=== PATIENT | male | born 1955 | race Caucasian/White ===

== ENCOUNTER 2022-08-21 08:58 | Emergency (ER) | payer BC, SELFPAY ==
[2022-08-21 09:10] VITALS: BP 169/95; PULSE 72; RESP 12; TEMP 37; O2SAT 99
--- NOTE | 2022-08-21 09:26 | ED.EAR ---
HPI - Ear Problem General Chief complaint: Ear Stated complaint: trouble hearing from left ear Time Seen by Provider: 08/21/22 09:15 Source: patient Mode of arrival: ambulatory Limitations: no limitations History of Present Illness HPI Narrative: 66-year-old male presents with complaint of clogged feeling to left ear with decreased hearing. Patient states that he went to his yearly doctor's appointment 3 days ago and was told lots of wax to left ear canal. Was told to use navw-ofz-blskloj Debrox drops. States that Debrox drops made symptoms worse. Patient is leaving to go town, flying on a plane today, and would like ear irrigated prior to leaving. All systems reviewed and negative except as noted above. Related Data Home Medications Medication Instructions Recorded Confirmed multivitamin 1 tablet PO DAILY 08/19/22 08/21/22 tizanidine 4 mg tablet 4 mg PO QHS PRN muscle spasticity 08/19/22 08/21/22 Allergies Allergy/AdvReac Type Severity Reaction Status Date / Time No Known Allergies Allergy Verified 08/21/22 09:01 Review of Systems Review of Systems: CONSTITUTIONAL: Denies fever, chills, or sweats. EYES: Denies visual changes, redness, or discharge. ENT: Denies rhinorrhea, congestion, sore throat, or otalgia. Reports clogged, decreased hearing left ear. CARDIOVASCULAR: Denies chest pain, palpitations, or edema. RESPIRATORY: Denies cough or dyspnea. GASTROINTESTINAL: Denies abdominal pain, nausea, vomiting, or diarrhea. GENITOURINARY: Denies dysuria or hematuria. SKIN: Denies rash or itching. MUSCULOSKELETAL: Denies back pain, joint pain, or myalgia. NEUROLOGIC: Denies headache, numbness, or weakness. PSYCHIATRIC: Denies anxiety or depression. All other systems reviewed are negative, except as documented in HPI. [facility] Past Medical History Medical History BMI 34.0-34.9,adult BMI over 35 Elevated glucose Essential (primary) hypertension Mixed hyperlipidemia Need for vaccination Family History Family History Father Hypertension Cerebrovascular accident Family history of diabetes mellitus in first degree relative Family history of heart disease in male family member before age 55 Sibling Family history of diabetes mellitus in first degree relative Other Family history of arthritis Family history of cardiovascular disease Social History Social History Smoking status: Never smoker Second hand tobacco smoke exposure: No Alcohol intake: current Substance use: never Substance use type: does not use Lack of Transportation: No Lack of Food: Never True Current Housing: I Have Housing Concerned About Future Housing: No Difficulty Paying Gas/Electric Bills: No Difficulty Paying for Meds: No Currently Unemployed: No Education: Bachelor's Degree Difficulty w/ Childcare or Family Care: No Comments At time of signature, agree with nursing past medical, surgical, social and family history. There is no relevant family history pertinent to the presenting complaint. Exam Narrative: GENERAL: This is a well-nourished, well-developed patient, in no apparent distress. HEAD: normocephalic, atraumatic. EYES: PERRL. Sclera clear/white. Vision is grossly intact. EARS: External ears normal, Left ear canal impacted with cerumen. Right ear canal normal. Right TM normal. Left TM normal after irrigated. NOSE: External nose normal NECK: Neck supple, non-tender without lymphadenopathy, masses or thyromegaly. CARDIOVASCULAR: Regular rate and rhythm without murmurs, gallops, or rubs. RESPIRATORY: Clear to auscultation. Breath sounds equal bilaterally. No wheezes, rales, or rhonchi. SKIN: warm, Dry, intact with no suspicious lesions or rash, good texture and turgor. NEURO: awake, alert, and oriented to person, plac
== END 2022-08-21 09:38 | disposition home or self-care (01) ==
PROVIDERS: Emergency Provider Nurse Practitioner Family; PCP Family Medicine
DX: H61.22 Impacted cerumen, left ear (principal); I10 Essential (primary) hypertension; E78.2 Mixed hyperlipidemia
CPT/HCPCS: 69209; 99213; G0463

== ENCOUNTER 2024-08-17 08:54 | Outpatient (CLI) | payer MEDICARE, SELFPAY ==
--- NOTE | ~2024-08-17 | XR_ITS ---
Left Knee Technique: AP, lateral, and sunrise views were obtained. Clinical History: Arthritis Findings: No fracture or dislocation is seen. Osseous alignment is anatomic. Moderate to advanced tri compartmental osteoarthritis present, worst in the patellofemoral compartment.. Probable small joint effusion is seen. Impression: Moderate to advanced tricompartmental osteoarthritis. Probable small joint effusion. Reviewed, dictated and finalized at location . Impression: Moderate to advanced tricompartmental osteoarthritis. Probable small joint effusion.
--- OUTSIDE RECORDS SUMMARY | 2024-08-17 09:05 | XMS_ITS | Clinical Summary ---
Author Organization [facility] Address [address] [place] [address] Care Team Providers Care Sonography Technician Name Role Phone Unavailable Primary Care Provider Unavailabl e Source Comments [facility],non-owned Affiliates and Associated Physician Practices is amultiple site organization consisting of ambulatory clinics and hospital sitesin [place], [place], [place] and [place]. This disclosure is being madepursuant to the Care Everywhere program and may not contain all information available regarding this patient. Last updated 17.[facility] [employer] Social History Tobacco Use Types Packs/Day Years Used Date Smoking Tobacco: Never Assessed Sex and Gender Information Value Date Recorded Sex Assigned at Not on file Legal Sex Male 6:54 AM CDT Gender Identity Not on file Sexual Orientation Not on file Plan of Treatment Health Maintenance Due Date Last Done Comments COLOGUARD (AGES 45-75) - COL ON CA SCREENING 1957 COLON MONITORING 1957 COLONOSCOPY - COLON CA SCREENING 1957 CT COLONOGRAPHY - COLON CA SCREENING 1957 Colorectal Cancer Screening 1957 FIT - COLON CA SCREENING 1957 FLEX SIG - COLON CA SCREENING 1957 LIPID TESTING 1957 HEPATITIS C SCREENING 09/29/1975 DTAP/TDAP/TD VACCINES (1 - Tdap) 1976 PNEUMOCOCCAL VACCINE 50+ (1 of 1 - PCV) 10/04/2007 ZOSTER VACCINE (1 of 2) 10/04/2007 COVID-19 VACCINE ( - 2023-2 5 season) 2023 DEPRESSION SCREENING 04/04/2024 MEDICARE AWV CALENDAR YEAR 2024 INFLUENZA VACCINE (Season Ended) 2024 Respiratory Syncytial Virus (RSV) Vaccine Pt: or over 60 yrs (1 - 1-dose 75+ series) 2032 HEPATITIS B VACCINE Aged Out No longe r eligible based on patient's age to complete this topic HIB VACCINE Aged Out No longer eligi ble based on patient's age to complete this topic HPV VACCINE Aged Out No longer eligi ble based on patient's age to complete this topic MENINGOCOCCAL (Group B) VACC INE SHARED DECISION-MAKING Aged Out No longer eligibl e based on patient's age to complete this topic MENINGOCOCCAL GROUPS A/C/Y/W VACCINE Aged Out No longer eligible b ased on patient's age to complete this topic Insurance
--- OUTSIDE RECORDS SUMMARY | 2024-08-17 09:05 | XMS_ITS | CONTINUITY OF CARE DOCUMENT ---
Author Name shakira rosenberg Address Unknown Organization [facility] Address [address] [place] [address] Phone [phone] Care Team Providers Care Stack Yield Engineer Name Role Phone TAHMINA JACKSON, GREGORY F Unavailable [phone] INSURANCE PROVIDERS Payer name Policy type / Coverage type [place] red republican ID [facility] [id number]
--- OUTSIDE RECORDS SUMMARY | 2024-08-17 09:05 | XMS_ITS | Encounter Summary ---
Author Organization [facility] Address [address] [place] [address] Care Team Providers Care Commercial Loan Administrator Name Role Phone Unavailable Primary Care Provider Unavailabl e Encounter Details Date Type Department Care Team (Late st Contact Info) Description 10/08/2022 Lab Requisition [facility] - DermPath Lab [address] [place] [id number] Rosalio Zamorano MD [address] [place] [address] Social History Tobacco Use Types Packs/Day Years Used Date Smoking Tobacco: Never Assessed Sex and Gender Information Value Date Recorded Sex Assigned at Not on file Legal Sex Male 6:54 AM CDT Gender Identity Not on file Sexual Orientation Not on file documented as of this encounter Plan of Treatment Not on file documented as of this encounter Procedures Procedure Name Priority Date/Time Associated Diagnosis Comments DERMATOPATHOLOGY Routine 10/07/2022 12:0 0 AM CDT documented in this encounter Results * DERMATOPATHOLOGY (10/07/2022 12:00 AM CDT) Case Report Dermatopathology Report Case: [id number] Authorizing Provider: Rosalio Zamorano MD Collected: 10/07/2022 12:00 AM Ordering Location: [facility] Received: 10/08/2022 07:13 AM Pathologist: Donna Matos MD Specimen: Skin, left scalp 9:43 AM CDT DERMATOPATHOLOGY LABORATORY Final Diagnosis Specimen A. SKIN, left scalp: INVERTED FOLLICULAR KERATOSIS (L82.1) PRESENT AT MARGIN 9:43 AM CDT DERMATOPATHOLOGY LABORATORY Clinical History Changing lesion removed Check margins 9:43 AM CDT DERMATOPATHOLOGY LABORATORY Gross Description Specimen A: Received is one formalin filled container labeled with the patient's name and designated left scalp. The specimen consists of a shave biopsy measuring 7x6x4 mm. Jar 0. 9:43 AM T DERMATOPATHOLOGY LABORATORY Microscopic Description Specimen A. SKIN, left scalp: Sections show an endophytic lesion with acanthosis consisting of fairly uniform squamous cells with eosinophilic cytoplasm. Squamous eddies are seen toward the base of the lesion. This lesion is present at the margin of the specimen. 9:43 AM CDT DERMATOPATHOLOGY LABORATORY Disclaimer An external and internal positive and negative controls are appropriate for the histochemical, immunohistochemical and immunofluorescence stain(s) in this case (if any), except where stated explicitly. The performance characteristics of the stain(s) cited in this report were developed and its performance characteristic determined by the Dermatopathology Laboratory at [facility], directed by Dr. Gregory Kelly. These tests need not be, and therefore are not, approved by the [place] Food and Drug Administration. The tests are used for clinical purposes. Billing Codes Specimen Charges Stain Charges 67590 1 9:43 AM CDT DERMATOPATHOLOGY LABORATORY Embedded Images 9:43 AM CDT DERMATOPATHOLOGY LABORATORY Pathology/Cytolog y TISSUE SPECIMEN FROM SKIN / Unknown 10/07/2022 10/08/2022 7:13 AM CDT Rosaliohong Zamorano MD LAB - PATHOLOGY/CYTOLOGY KIMBER WETZEL Final Result DERMATOPATHOLOGY LABORATORY [facility] - Department of Dermatology [address], [address] [phone] documented in this encounter Visit Diagnoses Not on filedocumented in this encounter
== END 2024-08-17 08:55 | disposition home or self-care (01) ==
PROVIDERS: PCP Family Medicine; Visit Provider Family Medicine
DX: M17.12 Unilateral primary osteoarthritis, left knee (principal)
CPT/HCPCS: 73564

== ENCOUNTER 2024-09-17 14:32 | Outpatient (CLI) | payer MEDICARE, SELFPAY ==
--- NOTE | ~2024-09-17 | CT_ITS ---
EXAMINATION: CT_LELTCWO_CT DATE: 09/17/2024 14:58 INDICATION: Osteoarthritis of the left knee TECHNIQUE: High resolution computed tomography (CT) of the left lower extremity from the hip through the ankle was performed without intravenous contrast. Additional sagittal and coronal reconstructions were performed. The dose-length product was 2057.47 mGy-cm. COMPARISON: Plain radiograph dated 08/17/2024 FINDINGS: Severe degenerative disease is identified within the left knee, with osteophyte formation and signifi cant joint space narrowing. No acute fracture is appreciated. IMPRESSION: CT left lower extremity utilizing conformis protocol, performed for preoperative planning Reviewed, dictated and finalized at location A. IMPRESSION: CT left lower extremity utilizing conformis protocol, performed for preoperativ e planning
--- OUTSIDE RECORDS SUMMARY | 2024-09-17 15:41 | XMS_ITS | Clinical Summary ---
Author Organization [facility] Address [address] [place] [address] Care Team Providers Care Boarding House Cook Name Role Phone Unavailable Primary Care Provider Unavailabl e Source Comments [facility],non-owned Affiliates and Associated Physician Practices is amultiple site organization consisting of ambulatory clinics and hospital sitesin [place], [place], [place] and [place]. This disclosure is being madepursuant to the Care Everywhere program and may not contain all information available regarding this patient. Last updated 17.[facility] [employer] Social History Tobacco Use Types Packs/Day Years [...]
--- OUTSIDE RECORDS SUMMARY | 2024-09-17 15:41 | XMS_ITS | CONTINUITY OF CARE DOCUMENT ---
Author Name shakira rosenberg Address Unknown Organization [facility] Address [address] [place] [address] Phone [phone] Care Team Providers Care Cross Country Coach Name Role Phone TAHMINA JACKSON, GREGORY F Unavailable INSURANCE PROVIDERS Payer name Policy type / Coverage type [place] red alliance party ID [facility] [id number]
--- OUTSIDE RECORDS SUMMARY | 2024-09-17 15:41 | XMS_ITS | Encounter Summary ---
Author Organization [facility] Address [address] [place] [address] Care Team Providers Care Flue Blower Name Role Phone Unavailable Primary Care Provider Unavailabl e Encounter Details Date Type Department Care Team (Late st Contact Info) Description 10/08/2022 Lab Requisition [facility] - Derm[facility] Lab [address] [place] [id number] Rosalio Zamorano MD [address] [place] [address] Social History Tobacco Use Types [...] AM CDT) Case Report Dermatopathology Report Case: [id number] Authorizing Provider: Rosalio Zamorano MD Collected: 10/07/2022 12:00 AM Ordering Location: [facility] DermPath Lab Received: 10/08/2022 07:13 AM Pathologist: Donna Matos MD Specimen: Skin, left scalp 9:43 AM CDT DERMATOPATHOLOGY LABORATORY Final Diagnosis Specimen A. SKIN, left scalp: INVERTED FOLLICULAR KERATOSIS (L82.1) PRESENT AT MARGIN 9:43 AM CDT DERMATOPATHOLOGY LABORATORY at 0943 CDT Clinical History Changing lesion removed Check margins 9:43 AM CDT DERMATOPATHOLOGY LABORATORY Gross Description Specimen A: Received is one formalin filled container labeled with the patient's name and designated left scalp. The specimen consists of a shave biopsy measuring 7x6x4 mm. Jar 0. 9:43 AM CDT DERMATOPATHOLOGY LABORATORY Microscopic Description Specimen A. SKIN, [...] characteristic determined by the Dermatopathology Laboratory at [facility], directed by Dr. Gregory Kelly. These tests need not be, and therefore are not, approved by the [place] Food and Drug Administration. The tests are used for clinical purposes. Billing Codes Specimen Charges Stain Charges 56330 1 9:43 AM CDT DERMATOPATHOLOGY LABORATORY Embedded Images 9:43 AM CDT DERMATOPATHOLOGY LABORATORY Pathology/Cytolog y TISSUE SPECIMEN FROM SKIN / Unknown 10/07/2022 10/08/2022 7:13 AM CDT Rosaliohong Zamorano MD LAB - PATHOLOGY/CYTOLOGY KIMBER WETZEL Final Result DERMATOPATHOLOGY LABORATORY [facility] - Department of Dermatology [address], [address] [phone] documented in this encounter Visit Diagnoses Not on filedocumented in this encounter
== END 2024-09-17 14:33 | disposition home or self-care (01) ==
PROVIDERS: PCP Family Medicine; Visit Provider Orthopaedic Surgery
DX: M17.12 Unilateral primary osteoarthritis, left knee (principal)
CPT/HCPCS: 73700

== ENCOUNTER 2024-10-02 07:55 | Outpatient (CLI) | payer MEDICARE, SELFPAY ==
--- OUTSIDE RECORDS SUMMARY | 2024-10-02 07:59 | XMS_ITS | Encounter Summary ---
Author Organization [facility] Address [address] [place] [address] Care Team Providers Care Fringe Weaver Name Role Phone Unavailable Primary Care Provider Unavailabl e Encounter Details Date Type Department Care Team (Late st Contact Info) Description 10/08/2022 Lab Requisition [facility] - Derm[facility] Lab [address] [place] [id number] Rosalio Zamorano MD [address] [place] [address] Social History Tobacco Use Types [...] AM CDT) Case Report Dermatopathology Report Case: [id number] Authorizing Provider: Rosalio Zamorano MD Collected: 10/07/2022 12:00 AM Ordering Location: [facility] DermPath Lab Received: 10/08/2022 07:13 AM Pathologist: [...] characteristic determined by the Dermatopathology Laboratory at [facility], directed by Dr. Gregory Kelly. These tests need not be, and therefore are not, approved by the [place] Food and Drug Administration. The tests are used for clinical purposes. Billing Codes Specimen Charges Stain Charges 98111 1 9:43 AM CDT DERMATOPATHOLOGY LABORATORY Embedded Images 9:43 AM CDT DERMATOPATHOLOGY LABORATORY Pathology/Cytolog y TISSUE SPECIMEN FROM SKIN / Unknown 10/07/2022 10/08/2022 7:13 AM CDT Rosaliohong Zamorano MD LAB - PATHOLOGY/CYTOLOGY KIMBER WETZEL Final Result DERMATOPATHOLOGY LABORATORY [facility] - Department of Dermatology [address] [phone] documented in this encounter Visit Diagnoses Not on filedocumented in this encounter
--- OUTSIDE RECORDS SUMMARY | 2024-10-02 07:59 | XMS_ITS | Clinical Summary ---
Author Organization [facility] Address [address] [place] [address] Care Team Providers Care Surgery Scheduler Name Role Phone Unavailable Primary Care Provider Unavailabl e Source Comments [facility],non-owned Affiliates and Associated Physician Practices is amultiple site organization consisting of ambulatory clinics and hospital sitesin [place], [place], [place] and [place]. This disclosure is being madepursuant to the Care Everywhere program and may not contain all information available regarding this patient. Last updated 17.[facility] Social History Tobacco Use Types Packs/Day Years [...]
[2024-10-02 08:28] LABS: Hematocrit 41.7 % (42.0-52.0); Hemoglobin 13.7 g/dL (14.0-18.0)
[2024-10-02 08:40] LABS: Albumin Level 4.3 g/dL (3.5-5.1); Estimated Glomerular Filt Rate > 60; Glucose 146 mg/dL (65-110)
--- NOTE | 2024-10-02 08:40 | ECG_ITS ---
Test Date: 2024-10-02 09:27:40 Measurements Intervals [place] Rate: 62 P: 6 CA: 238 QRS: -5 QRSD: 112 T: 30 QT: 418 QTc: 426 Interpretive Statements SINUS RHYTHM WITH FIRST DEGREE AV BLOCK INCOMPLETE RIGHT BUNDLE BRANCH BLOCK [90+ ms QRS DURATION, TERMINAL R IN V1/V2, 40+ ms S IN I/aVL/V4/V5/V6] MODERATE ST DEPRESSION [0.05+ mV ST DEPRESSION] No previous ECG available for comparison Electronically Signed On 10-02-2024 18:01:33 CDT by Jim Bynum
[2024-10-02 10:30] LABS: Hemoglobin A1C. 7.3 % (<5.7)
== END 2024-10-02 07:56 | disposition home or self-care (01) ==
PROVIDERS: PCP Family Medicine; Visit Provider Orthopaedic Surgery
DX: R73.03 Prediabetes (principal); E78.2 Mixed hyperlipidemia; M17.12 Unilateral primary osteoarthritis, left knee; I10 Essential (primary) hypertension
CPT/HCPCS: 36415; 82040; 82565; 82947; 83036; 85014; 85018; 93005

== ENCOUNTER 2025-01-02 13:47 | Outpatient (CLI) | payer MEDICARE, SELFPAY ==
--- OUTSIDE RECORDS SUMMARY | 2025-01-02 13:57 | XMS_ITS | Encounter Summary ---
Author Organization [facility] Address [address] [place] [address] Care Team Providers Care Toilet And Laundry Soap Supervisor Name Role Phone Unavailable Primary Care Provider Unavailabl e Encounter Details Date Type Department Care Team (Late st Contact Info) Description 10/08/2022 Lab Requisition [facility] - DermPath Lab [address] [place] [phone] Rosalio Zamorano MD [address] [place] [address] Social History Tobacco Use Types [...] AM CDT) Case Report Dermatopathology Report Case: [id number] Authorizing Provider: Rosalio Zamorano MD Collected: 10/07/2022 12:00 AM Ordering Location: [facility] DermPath Lab Received: 10/08/2022 07:13 AM Pathologist: [...] characteristic determined by the Dermatopathology Laboratory at [facility], directed by Dr. Gregory Kelly. These tests need not be, and therefore are not, approved by the [place] Food and Drug Administration. The tests are used for clinical purposes. Billing Codes Specimen Charges Stain Charges 51830 1 9:43 AM CDT DERMATOPATHOLOGY LABORATORY Embedded Images 9:43 AM CDT DERMATOPATHOLOGY LABORATORY Pathology/Cytolog y TISSUE SPECIMEN FROM SKIN / Unknown 10/07/2022 10/08/2022 7:13 AM CDT Rosaliohong Zamorano MD LAB - PATHOLOGY/CYTOLOGY KIMBER WETZEL Final Result DERMATOPATHOLOGY LABORATORY [facility] - Department of Dermatology [address] [phone] documented in this encounter Visit Diagnoses Not on filedocumented in this encounter
--- OUTSIDE RECORDS SUMMARY | 2025-01-02 13:57 | XMS_ITS | Clinical Summary ---
Author Organization [facility] Address [address] [place] [address] Care Team Providers Care Senior Administrator Support Name Role Phone Unavailable Primary Care Provider Unavailabl e Source Comments [facility],non-owned Affiliates and Associated Physician Practices is amultiple site organization consisting of ambulatory clinics and hospital sitesin [place], [place], [place] and [place]. This disclosure is being madepursuant to the Care Everywhere program and may not contain all information available regarding this patient. Last updated 17.[facility] [email or web address] Social History Tobacco Use Types Packs/Day Years [...] 10/04/2007 ZOSTER VACCINE (1 of 2) 10/04/2007 DEPRESSION SCREENING 04/04/2024 MEDICARE AWV CALENDAR YEAR 2024 COVID-19 VACCINE (1 - 2023-2 5 season) 2024 INFLUENZA VACCINE (#1) 2024 Respiratory Syncytial Virus (RSV) Vaccine Pt: [...] patient's age to complete [place] [id number]
[2025-01-02 16:07] LABS: MRSA (PCR) NOT DETECTED (NOT DETECTE)
== END 2025-01-02 13:48 | disposition home or self-care (01) ==
LOC: ANHSURGERY 13:52
PROVIDERS: PCP Family Medicine; Visit Provider Orthopaedic Surgery
DX: M17.12 Unilateral primary osteoarthritis, left knee (principal); Z01.818 Encounter for other preprocedural examination; Z79.899 Other long term (current) drug therapy
CPT/HCPCS: 80307; 87641

== ENCOUNTER 2025-01-31 02:10 | Day surgery (SDC) | payer MEDICARE, SELFPAY ==
[2025-01-02 13:55] VITALS: BMI 36.1
--- NOTE | 2025-01-02 13:55 | PC.NURSE ---
[facility] has started construction of its new state of the art ER which will open Spring 2026. With this, we anticipate parking may be a challenge for some our surgical patients and families. Parking spaces are limited but are available for all Surgical, obstetrics, and ER patients sharing this lot. If you arrive and find you are having a hard time finding a parking space, please note that we understand the challenges, please drive around the hospital and park near Hospital Entrance 1. When you enter this entrance, you can ask a volunteer to direct or take you back to the surgical waiting area to check in. We appreciate everyone?s understanding of these expected challenges while we build for your future. Report to the Outpatient Waiting Room, entrance under the green pavilion located off [address], at time _8 am on date ___01/31/25____. Planned Procedure Time: _10 am .? Time changes happen often and if your time is changed the preop area will call you the afternoon before. - You and your visitor will be asked to self-screen and do not enter if you have any COVID symptoms. Please call surgeon if you need to reschedule. - A mask is optional within the hospital at this time. Patients may have clear liquids (water, carbonated beverages, clear teas, apple juice) until 3 hours prior to surgery( 7 am) with a maximum of 20 ounces. - No food from midnight until time of surgery and no smoking, or chewing tobacco (or any form of nicotine). No chewing gum, candy or mints. Take only the following medications with a SIP of water on the morning of surgery: NONE DO NOT STOP ANY OF YOUR OTHER PRESCRIPTION MEDICATIONS PRIOR TO SURGERY EXCEPT THE FOLLOWING Hold all vitamins and supplements for 3 days per anesthesiologist.LAST DOSE01/27/25 Medications to discontinue per physician IBUPROFEN HOLD 7 DAYS PRE OP Date to take last dose 01/23/25 Please no make-up, nail georgian, hairspray, perfume, deodorant, or body powder the day of surgery.? No jewelry (including any body piercings) or valuables the day of surgery, leave them at home.? Please take a shower or bath the night before, or the morning of, surgery with an antibacterial soap.? Wear comfortable, loose fitting clothing.? Children are encouraged to wear pajamas. - Jewelry must be removed prior to entering the operating room.? Rings and piercings that are not removed may be cut off. - The hospital will not accept responsibility for valuables.? - Please leave all valuables, including medications, at home the day of surgery. If you are going home after surgery, a licensed road driver must drive you home.? - NO public transportation without another adult if you receive anesthesia. - We recommend that an adult stay with you for 24 hours following discharge. - We also recommend that you do not drive, make important decision, drink alcoholic beverages, or take any drugs that were not prescribed by your health care provider for at least 24 hours after your discharge time. For Pediatric surgeries, we recommend two adults accompany the child home. Follow any additional instructions given to you from your surgeon. verbal and written instructions given to __PATIENT AND WIFE and asked if any additional questions and then verbalized understanding. Patient advised to call surgeon office or pre surgery nurse liaison [phone] if any additional questions.
[2025-01-02 14:33] VITALS: BP 151/86; PULSE 74; RESP 18; TEMP 37.5; O2SAT 97
[2025-01-31] VITALS (8 sets, daily range): BP systolic 124–193; BP diastolic 73–101; PULSE 69–85; RESP 15–18; TEMP 36.7–37.1; O2SAT 93–98
--- NOTE | ~2025-01-31 | XR_ITS ---
EXAMINATION: [id number] DATE: 01/31/2025 13:10 INDICATION: Postoperative evaluation following left total knee arthroplasty. TECHNIQUE: Anteroposterior and lateral views of the left knee were obtained. COMPARISON: None. FINDINGS: Left total knee arthroplasty with patellar resurfacing appears well seated and in near anatomic alignment. No fractures identified. Expected postoperative subcutaneous and intra-articular gas. IMPRESSION: 1. Left total knee arthroplasty, negative for postoperative purposes. Reviewed, dictated and finalized at location A.
--- OUTSIDE RECORDS SUMMARY | 2025-01-31 02:13 | XMS_ITS | Encounter Summary ---
Author Organization [facility] Address [address] [place] [address] Care Team Providers Care Bank Accountant Name Role Phone Unavailable Primary Care Provider Unavailabl e Encounter Details Date Type Department Care Team (Late st Contact Info) Description 10/08/2022 Lab Requisition [facility] - DermPath Lab [address] [place] [id number] Rosalio Zamorano MD [address] [place] [address] Social History Tobacco Use Types [...] AM CDT) Case Report Dermatopathology Report Case: [id number] Authorizing Provider: Rosalio Zamorano MD Collected: 10/07/2022 12:00 AM Ordering Location: [facility] DermPath Lab Received: 10/08/2022 07:13 AM Pathologist: [...] characteristic determined by the Dermatopathology Laboratory at [facility], directed by Dr. Gregory Kelly. These tests need not be, and therefore are not, approved by the [place] Food and Drug Administration. The tests are used for clinical purposes. Billing Codes Specimen Charges Stain Charges 63309 1 9:43 AM CDT DERMATOPATHOLOGY LABORATORY Embedded Images 9:43 AM CDT DERMATOPATHOLOGY LABORATORY Pathology/Cytolog y TISSUE SPECIMEN FROM SKIN / Unknown 10/07/2022 10/08/2022 7:13 AM CDT Rosaliohong Zamorano MD LAB - PATHOLOGY/CYTOLOGY [facility]EL Final Result DERMATOPATHOLOGY LABORATORY [facility] - Department of Dermatology [address], [address] [phone] documented in this encounter Visit Diagnoses Not on filedocumented in this encounter
--- OUTSIDE RECORDS SUMMARY | 2025-01-31 02:13 | XMS_ITS | Clinical Summary ---
Author Organization [facility] Address [address] [place] [address] Care Team Providers Care Home Agent Name Role Phone Unavailable Primary Care Provider Unavailabl e Source Comments [facility],non-owned Affiliates and Associated Physician Practices is amultiple site organization consisting of ambulatory clinics and hospital sitesin [place], [place], [place]. This disclosure is being madepursuant to the Care Everywhere program and may not contain all information available regarding this patient. Last updated 17.[facility] [employer] Social History Tobacco Use Types Packs/Day Years [...]
[2025-01-31] MEDS: ACETAMINOPHEN 500 MG TABLET 1000 MG PO (09:12)
[2025-01-31] MEDS: TRANEXAMIC ACID 1,000MG/ISO100 1,000 MG/100 ML BAG 200 MG IVPB ×2 (09:15→10:34)
[2025-01-31] MEDS: LACTATED RINGERS 1,000 ML 30 ML IV CONT ×2 (09:15→13:00)
--- NOTE | 2025-01-31 10:30 | P.PNAN_ITS ---
Anes - Initial Pre Proc Eval Procedure: Operation Date: 01/31/25 10:00 Proposed Procedures p Left Custom Total Knee Arthroplasty - Christiano Tomas MD Date/Time: 01/31/25 10:30 Surgeon: Christiano Tomas MD Pre Op Diagnosis: primary oa Left knee Patient Data Age: 69 Gender: M Height: 1.73 m Weight: 107.8 kg Last Vital Signs Temp 98.1 F 01/31/25 08:20 Pulse 81 01/31/25 08:20 Resp 16 01/31/25 08:20 BP 193/101 H 01/31/25 08:20 Pulse Ox 97 01/31/25 08:20 O2 Del Method Room Air 01/31/25 08:36 Allergies Allergy/AdvReac Type Severity Reaction Status Date / Time No Known Allergies Allergy Verified 01/31/25 09:23 Home Medications ?Medication ?Instructions ?Recorded ?Confirmed ?Type multivitamin 1 tablet PO DAILY 08/19/22 1 History alprazolam 0.5 mg tablet 0.5 mg PO TID PRN anxiety #1 0 tabs 08/16/24 01/02/25 Rx ezetimibe 10 mg tablet (Zetia) 10 mg PO DAILY #90 tabs 08/16/24 01/31/25 Rx lisinopril 10 See Rx Instructions .Route 0 08/16/24 01/31/25 Rx mg-hydrochlorothiazide 12.5 mg .COMPLEX #90 tabs tablet ibuprofen 200 mg tablet (Advil) 600 mg PO PRN PRN pain 01/02/25 01/31/25 History aspirin 81 mg tablet,delayed 81 mg PO BID 14 days #28 tabs 01/31/25 Rx release oxycodone-acetaminophen 5 mg-325 1 - 2 tablet PO Q4-6H PRN pain 7 01/31/25 Rx mg tablet days #30 tabs prednisone 5 mg tablet 5 mg PO DAILY 3 weeks #21 ta bs 01/31/25 Rx Laboratory Tests 01/31/25 08:51 Blood Type Pending Antibody Screen Pending Patient hx anesthesia problems: post op nausea/vomiting Family hx anesthesia problems: none Results Review: All pre-operative results and documents have been reviewed as part of the pre- operative evaluation. FORMERLY [facility], [facility] Past Medical History Medical History Skin lesion of scalp Need for vaccination Elevated glucose Essential (primary) hypertension Mixed hyperlipidemia Surgical History Surgical History S/P left knee arthroscopy H/O rotator cuff surgery Bilateral Family History Family History Father Hypertension Cerebrovascular accident Family history of diabetes mellitus in first degree relative Family history of heart disease in male family member before age 55 Sibling Family history of diabetes mellitus in first degree relative Other Family history of arthritis Family history of cardiovascular disease Social History Social History Smoking status: Never smoker Second hand tobacco smoke exposure: No Additional smoking assessment comments: DENIES ANY FORM OF TOBACCO USE Alcohol intake: current Drinks per week: 3 Alcohol use details: BEER Substance use: never Substance use type: does not use Do You Feel Safe in your Home?: Yes Lack of Transportation: No Lack of Food: Never True Current Housing: I Have Housing Concerned About Future Housing: No Difficulty Paying Gas/Electric Bills: No Difficulty Paying for Meds: No Currently Unemployed: No Education: Bachelor's Degree Difficulty w/ Childcare or Family Care: No Living arrangements: with family Occupation/Education: retired Gender identity (if verbalized by the patient): Male Spiritual care concerns: No Anes - Eval Final PreProcedure Day of Procedure 01/31/25 10:30 Patient weight: obese Heart: regular rate and rhythm Lungs: clear to auscultation Airway: Mallampati scale class II Neurological: alert and oriented Last oral intake: >/= 8 hours ASA classification: III Emergent: no Anesthetic plan: proceed Anesthesia type and monitoring: general LMA and standard monitoring Results Review: All pre-operative results and documents have been reviewed as part of the pre- operative evaluation. Informed Consent: The patient's anesthetic plan and its attendant risks and benefits were discussed with the patient/family/POA. Questions were solicited and answers provided to the satisfaction of the patient/family/POA.
--- NOTE | 2025-01-31 10:30 | WPDHPUPDATE1 ---
History and Physical Update Update Date/Time: 01/31/25 10:30 History and Physical has been reviewed, including an updated exam of the patient. There are NO changes in the patient's condition. Risks, benefits, and alternatives have been discussed and questions answered. Patient agrees to proceed with procedure.
[2025-01-31] MEDS: ceFAZolin 2 GM in SODIUM CHLORIDE 0.9% IV 50 ML 100 ML IVPB (10:34)
[2025-01-31] MEDS: SCOPOLAMINE 1 MG PATCH 1 PATCH TRANSDERM (10:34)
[2025-01-31] MEDS: GENTAMICIN BONE CEMENT REFOBACIN 1 EACH TOPICAL (12:14)
[2025-01-31] MEDS: TRANEXAMIC ACID 1,000 MG/10 ML AMPUL 1000 MG IV PUSH (12:40)
[2025-01-31] MEDS: KETOROLAC 30 MG/ML VIAL (*BKC) IV PUSH (13:09)
--- NOTE | 2025-01-31 13:15 | P.OP_ITS ---
Procedure Note - Detailed Date of Procedure 01/31/25 Pre-op Diagnosis Left knee degenerative arthritis. Post-op Diagnosis Same Procedure Performed Custom total knee arthroplasty, left. Surgeon Christiano Tomas MD [facility]iatric [facility] Ankle Specialist Kamila Chopra PA-C Anesthesia General Findings Advanced tricompartmental disease. Extensive osteophytes. Excellent bone quality. PCL preserved. No ligament releases required. Optimal fit of the custom instruments and implants. Description of Procedure Preoperative antibiotics were given. The limb was prepped and draped in the usual sterile fashion with a well-padded tourniquet high on the thigh. The limb was exsanguinated and the tourniquet inflated to 300 mmHg during exposure and cementation. A longitudinal incision was created just medial to the patella. A trivector approach to the knee was performed. Arthrotomy was taken down through the joint capsule. No significant releases were initially taken. The femur was exposed and the F1 jig was applied. The coring tool was used to remove the cartilage for the F2 jig to sit flush with the bone. The jig was pinned and the distal cut carefully taken. Caliper measurements confirmed appropriate bony resections according to the preoperative templated plan. The F4 cutting jig for the femur was applied, at the standard rotation. The AP and anterior chamfer cuts were taken. The F5 jig was applied and the posterior chamfer cuts were tomy en. The tibia was prepared using the T1 jig, after removing cartilage for the jig contact points. Proper alignment was checked with the alignment christine. The tibia was cut using the T1u guide. Gap balancing was performed. Gap measurements were taken and the knee was trialed. Excellent alignment and soft tissue balancing was confirmed. The posterior cruciate ligament was recessed along the proximal tibia. The patella was cut for resurfacing. Three lug holes were drilled. Meniscal remnants were removed. The trial components were assembled. Excellent range of motion and proper soft tissue balancing were confirmed throughout the full range of motion. Patellar tracking was excellent. The knee was copiously irrigated periodically throughout the procedure. The real implants were cemen keyona into position. Excess cement was carefully removed. The wound was closed in layers with interrupted #1 Vicryl suture, 2-0 strata fix suture, 0 strata fix suture, 2-0 strata fix suture. Steri-Strips placed on the skin with the knee flexed. Sterile bulky dressing applied. The patient was brought to the recovery room in stable condition. There were no complications. Physician medical assistant ob gyn, Kamila Chopra PA-C, required for surgery; including patient positioning, draping, tissue retraction, maintaining instrument position, cement removal, wound closure, and dressing placement. Implants Conformis Custom total knee arthroplasty. Cemented. Cruciate retaining. 7A insert. 41 mm oval patella. Estimated Blood Loss 100 Drains No Complications No immediate complications Condition Stable Disposition PACU [facility] Billing Surgery - Charge Forward: Surgery Billing
[2025-01-31] MEDS: fentaNYL CITRATE INJ (*CRX) 100 MCG/2 ML VIAL 25 MCG IV PUSH ×4 (13:25→13:46)
[2025-01-31] MEDS: oxyCODONE HCL (*CRX) 5 MG TAB IR PO (14:05)
--- NOTE | 2025-01-31 14:20 | SUR.PHASEII ---
[facility]00 [facility] CALLED; WILL COME TO SEE PT SHORTLY. DIETARY CALLED WITH LUNCH REQUEST.
--- NOTE | 2025-01-31 14:50 | SUR.PHASEII ---
OT HERE TO WORK WITH PATIENT.
--- NOTE | 2025-01-31 14:53 | SUR.PHASEII ---
[facility]ER ORDERED FROM [facility].
--- NOTE | 2025-01-31 15:10 | SUR.PHASEII ---
OCCUPATIONAL THERAPIST HERE TO WORK WITH PATIENT. DR. MATTHEW HERE TO SEE PATIENT. PATIENT TOLERATED EATING LUNCH. PT UP WALKING WITH OT USING WALKER.
--- NOTE | 2025-01-31 15:16 | SUR.PHASEII ---
DR. MATTHEW OKAY'D FOR PATIENT TO GO HOME. MIKE ARRIVED FROM [facility]; REVIEWED HOW TO USE WITH SPOUSE.
== END 2025-01-31 15:28 | disposition home or self-care (01) ==
PROVIDERS: PCP Family Medicine; Visit Provider Orthopaedic Surgery
PROC: (CPT 27447; principal; 2025-01-31 10:00)
DX: M17.12 Unilateral primary osteoarthritis, left knee (principal); M25.762 Osteophyte, left knee; I10 Essential (primary) hypertension; E78.2 Mixed hyperlipidemia; E66.9 Obesity, unspecified; Z68.36 Body mass index [BMI] 36.0-36.9, adult; Z79.1 Long term (current) use of non-steroidal anti-inflammatories (NSAID); Z79.82 Long term (current) use of aspirin; Z79.891 Long term (current) use of opiate analgesic; Z79.52 Long term (current) use of systemic steroids; Z98.890 Other specified postprocedural states; Z82.49 Family history of ischemic heart disease and other diseases of the circulatory system
CPT/HCPCS: 27447; 36415; 73560; 86850; 86900; 86901; 97110; 97161; 97166; 97535; J0690; A9270; C1713; C1776; J0166; J1100; J1171; J1885; J2003; J2250; J2270; J2405; J2704; J2795; J3010; J3290; J7120